=== PATIENT | male | born 1995 | race Caucasian/White ===

== ENCOUNTER 2017-08-06 07:59 | Emergency (ER) | payer OTHER ==
[~2017-08-06] VITALS: Ht 167.6 cm; Wt 71.1 kg
[2017-08-06 08:04] VITALS: TEMP 37; Ht 167.6 cm; Wt 71.1 kg
[2017-08-06] MEDS ORDERED: XYLOCAINE 1%/SOD BICARB 20 ML VIAL INFIL ONE (08:30)
[2017-08-06 09:36] VITALS: BP 144/78; PULSE 87; O2SAT 98
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
== END 2017-08-06 10:04 | disposition home or self-care (01) ==
LOC: C.EDB 08:00 → C.EDA 10:04
DX: S01.81XA Laceration without foreign body of other part of head, initial encounter (principal); W50.0XXA Accidental hit or strike by another person, initial encounter; Y93.89 Activity, other specified; Y92.039 Unspecified place in apartment as the place of occurrence of the external cause